=== PATIENT | male | born 1985 | race American Indian/Alaskan Native ===

== ENCOUNTER 2016-05-24 12:27 | Emergency (ER) | payer OTHER ==
[2016-05-24] MEDS ORDERED: TORADOL IM ONE (15:58)
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
[2016-05-24 16:59] VITALS: BP 128/72
== END 2016-05-24 16:58 | disposition home or self-care (01) ==
LOC: ED 12:27
DX: M25.561 Pain in right knee (principal); M54.5 Low back pain; H53.8 Other visual disturbances; J45.909 Unspecified asthma, uncomplicated; Z87.891 Personal history of nicotine dependence; V49.49XA Driver injured in collision with other motor vehicles in traffic accident, initial encounter; Y92.415 Exit ramp or entrance ramp of street or highway as the place of occurrence of the external cause; Y93.89 Activity, other specified; Y99.8 Other external cause status
CPT/HCPCS: 96372; 99282; J1885